=== PATIENT | female | born 1985 | race Caucasian/White ===

== ENCOUNTER 2018-06-09 10:54 | Outpatient (REF) | payer MEDICAID, SELFPAY ==
--- NOTE | 2018-06-09 09:40 | SKI_PTH ---
PATIENT: Henna Chase LOC: [facility] U#:[id number] AGE/SX: 32/F ROOM: RE06/09/[address]: Teresita Steiner : 1985 BED: DIS: 06/09/2018 SPEC #: [id number] RECD: 06/09/18 12:56 STATUS: JULITA REJoe #: [id number] JULIANA: 06/09/18 09:[address]: Teresita Steiner DEPT: Surgical Specimen RECD BY: Helga Busch ENTERED: 06/09/18 12:57 SP TYPE: ISABEL PITTS DR: Armando Madrid Tissues: 1 - SKIN BIOPSY(SHAVE/PUNCH) Procedures: SKIN LEVEL 4 Comments: [id number] (A PORTION OF PUNCH BX WAS LOST IN PROCESSING)
== END 2018-06-09 11:14 ==
LOC: LBN 10:54
PROVIDERS: PCP Family Medicine; Visit Provider Obstetrics & Gynecology Gynecology
DX: D22.62 Melanocytic nevi of left upper limb, including shoulder (principal)
CPT/HCPCS: 88305

== ENCOUNTER 2020-06-05 15:48 | Outpatient (REF) | payer MEDICAID, SELFPAY ==
--- NOTE | 2020-06-05 15:15 | PAPFT_PTH ---
PATIENT: Henna Chase LOC: [facility] U#:[id number] AGE/SX: 34/F ROOM: RE06/05/[address]: BOB Saul : 1985 BED: DIS: 06/05/2020 SPEC #: [id number] RECD: 06/05/20 18:19 STATUS: JULITA REJoe #: [id number] JULIANA: 06/05/20 15:[address]: Laura Garcia DEPT: [facility] Cytology RECD BY: Helga Busch ENTERED: 06/05/20 18:20 SP TYPE: PAPFT OTHR DR: Armando Madrid Tissues: 1 - CX/ENDOCX FOR PAP SMEARS Procedures: PAP THIN PREP/[facility] Screening HPV DNA PROBE Comments: [id number]
== END 2020-06-05 16:08 ==
LOC: LBN 15:48
PROVIDERS: PCP Family Medicine; Visit Provider Nurse Practitioner Family
DX: Z12.4 Encounter for screening for malignant neoplasm of cervix (principal); Z11.51 Encounter for screening for human papillomavirus (HPV)
CPT/HCPCS: 88142; 87624

== ENCOUNTER 2021-04-08 16:19 | Outpatient (REF) | payer MEDICAID, SELFPAY ==
[2021-04-08 20:21] LABS: Anion Gap 13.3 mmol/L (3-11); BUN 10 mg/dL (7-18); CO2 24.7 mmol/L (21.0-32.0); CREATININE 0.7 mg/dL (0.55-1.02); Calcium 9.4 mg/dL (8.5-10.1); Chloride 101 mmol/L (98-107); Glucose 93 mg/dL (74-106); Potassium 3.5 mmol/L (3.5-5.1); Sodium 139 mmol/L (136-145)
== END 2021-04-08 16:20 | disposition home or self-care (01) ==
LOC: LBN 16:19
PROVIDERS: PCP Family Medicine; Visit Provider Physician Assistant Medical
DX: R11.10 Vomiting, unspecified (principal)
CPT/HCPCS: 80048

== ENCOUNTER 2021-04-08 17:06 | Outpatient (REF) | payer MEDICAID, SELFPAY ==
[2021-04-11 14:19] LABS: COVID-19 RT-PCR UVMMC Result Negative (Negative)
== END 2021-04-08 17:07 | disposition home or self-care (01) ==
LOC: LBN 17:06
PROVIDERS: PCP Family Medicine; Visit Provider Physician Assistant Medical
DX: Z11.52 Encounter for screening for COVID-19 (principal)
CPT/HCPCS: U0003

== ENCOUNTER 2022-03-08 14:22 | Outpatient (REF) | payer OTHER, SELFPAY ==
[2022-03-09 14:23] LABS: Chlamydia Result Negative (Negative); GC Result Negative (Negative)
== END 2022-03-08 14:23 | disposition home or self-care (01) ==
LOC: LBN 14:22
PROVIDERS: PCP Nurse Practitioner Adult Health; Visit Provider Nurse Practitioner Women's Health
DX: Z11.3 Encounter for screening for infections with a predominantly sexual mode of transmission (principal)
CPT/HCPCS: 87491; 87591

== ENCOUNTER 2022-09-03 02:02 | Outpatient (CLI) | payer OTHER, SELFPAY ==
[2022-09-03 10:33] LABS: Anion Gap 8.7 mmol/L (3-11); BUN 11 mg/dL (7-18); CO2 24.3 mmol/L (21.0-32.0); CREATININE 0.8 mg/dL (0.55-1.02); Calculated LDL 115 mg/dL (<100); Chloride 106 mmol/L (98-107); Cholesterol 205 mg/dL (<200); Estimated GFR 97.26 (mL/min/1.73m2); Glucose 88 mg/dL (74-106); HDL Cholesterol 71 mg/dL (40-60); Potassium 3.9 mmol/L (3.5-5.1); Sodium 139 mmol/L (136-145); Triglyceride 96 mg/dL (<150)
== END 2022-09-03 02:03 | disposition home or self-care (01) ==
PROVIDERS: PCP Nurse Practitioner Adult Health; Visit Provider Nurse Practitioner Adult Health
DX: E28.2 Polycystic ovarian syndrome (principal); Z51.81 Encounter for therapeutic drug level monitoring
CPT/HCPCS: 36415; 80048; 80061

== ENCOUNTER 2022-10-01 03:00 | Outpatient (CLI) | payer OTHER, SELFPAY ==
[2022-10-01 09:33] LABS: TSH (W/Ref FT4) 0.97 uIU/mL (0.36-3.74)
== END 2022-10-01 03:01 | disposition home or self-care (01) ==
PROVIDERS: PCP Nurse Practitioner Adult Health; Visit Provider Nurse Practitioner Adult Health
DX: E28.2 Polycystic ovarian syndrome (principal); E66.9 Obesity, unspecified; Z79.899 Other long term (current) drug therapy
CPT/HCPCS: 36415; 84443

== ENCOUNTER 2023-03-18 13:33 | Outpatient (REF) | payer OTHER, SELFPAY ==
[2023-03-19 15:55] LABS: Chlamydia Result Negative (Negative); GC Result Negative (Negative)
== END 2023-03-18 13:34 | disposition home or self-care (01) ==
LOC: LBN 13:33
PROVIDERS: PCP Nurse Practitioner Adult Health; Visit Provider Advanced Practice Midwife
DX: Z11.3 Encounter for screening for infections with a predominantly sexual mode of transmission (principal); Z72.51 High risk heterosexual behavior
CPT/HCPCS: 87491; 87591

== ENCOUNTER 2023-03-18 13:50 | Outpatient (CLI) | payer OTHER, SELFPAY ==
[2023-03-21 09:17] LABS: HSV Type 1 Ab, IgG Negative (Negative); HSV Type 2 Ab, IgG Negative (Negative)
[2023-03-21 11:02] LABS: Hepatitis B Surface Ag Negative (Negative)
[2023-03-21 11:05] LABS: Hepatitis C Ab w Rflx HCV PCR Negative (Negative)
[2023-03-21 11:44] LABS: HIV-1/2 Ag & Ab Screen Negative (Negative)
[2023-03-21 14:16] LABS: Syphilis IgG w/Reflex Nonreactive (Nonreactive)
== END 2023-03-18 13:51 | disposition home or self-care (01) ==
LOC: LBO 13:50
PROVIDERS: PCP Nurse Practitioner Adult Health; Visit Provider Advanced Practice Midwife
DX: Z34.91 Encounter for supervision of normal pregnancy, unspecified, first trimester (principal); Z72.51 High risk heterosexual behavior
CPT/HCPCS: 36415; 86803; 87340; 87389; 86695; 86696; 86780

== ENCOUNTER 2023-06-07 14:20 | Outpatient (REF) | payer OTHER, SELFPAY | END 2023-06-07 14:21 | disposition home or self-care (01) | LOC: LBN 14:20 | PROVIDERS: PCP Nurse Practitioner Adult Health; Visit Provider Nurse Practitioner Family | DX: J02.9 Acute pharyngitis, unspecified (principal) | CPT/HCPCS: 87070 ==

== ENCOUNTER 2023-06-10 09:05 | Outpatient (REF) | payer OTHER, SELFPAY ==
[2023-06-10 16:06] LABS: ALT 273 U/L (14-59); AST 104 U/L (15-37); Albumin 3.7 g/dL (3.4-5.0); Alkaline Phosphatase 212 U/L (46-116); Anion Gap 11.6 mmol/L (3-11); BUN 10 mg/dL (7-18); Bilirubin, Total 0.7 mg/dL (0.2-1.0); CO2 23.4 mmol/L (21.0-32.0); CREATININE 0.8 mg/dL (0.55-1.02); Calcium 9.2 mg/dL (8.5-10.1); Chloride 104 mmol/L (98-107); Estimated GFR 97.26 (mL/min/1.73m2); Glucose 93 mg/dL (74-106); Potassium 3.9 mmol/L (3.5-5.1); Sodium 139 mmol/L (136-145); Total Protein 8.1 g/dL (6.4-8.2)
[2023-06-10 16:36] LABS: Bilirubin, Direct 0.4 mg/dL (0.0-0.2)
[2023-06-10 20:24] LABS: Lab Add On Test DONE
[2023-06-10 20:31] LABS: Lipase 26 U/L (16-77)
== END 2023-06-10 09:06 | disposition home or self-care (01) ==
LOC: LBN 09:05
PROVIDERS: PCP Nurse Practitioner Adult Health; Visit Provider Student in an Organized Health Care Education/Training Program
DX: B27.90 Infectious mononucleosis, unspecified without complication (principal); R16.1 Splenomegaly, not elsewhere classified; R74.8 Abnormal levels of other serum enzymes
CPT/HCPCS: 80048; 80076; 83690

== ENCOUNTER 2023-06-24 14:29 | Outpatient (REF) | payer OTHER, SELFPAY ==
[2023-06-27 12:57] LABS: Chlamydia Result Negative (Negative); GC Result Negative (Negative)
== END 2023-06-24 14:30 | disposition home or self-care (01) ==
LOC: LBN 14:29
PROVIDERS: PCP Nurse Practitioner Adult Health; Visit Provider Obstetrics & Gynecology
DX: Z11.3 Encounter for screening for infections with a predominantly sexual mode of transmission (principal)
CPT/HCPCS: 87491; 87591

== ENCOUNTER 2023-07-22 01:25 | Outpatient (CLI) | payer OTHER, SELFPAY ==
[2023-07-22 10:01] LABS: ALT 32 U/L (14-59); AST 19 U/L (15-37); Albumin 3.8 g/dL (3.4-5.0); Alkaline Phosphatase 77 U/L (46-116); Bilirubin, Direct 0.2 mg/dL (0.0-0.2); Bilirubin, Total 0.5 mg/dL (0.2-1.0); Total Protein 7.7 g/dL (6.4-8.2)
== END 2023-07-22 01:26 | disposition home or self-care (01) ==
LOC: LBO 01:25
PROVIDERS: PCP Nurse Practitioner Adult Health; Referring Provider Student in an Organized Health Care Education/Training Program; Visit Provider Student in an Organized Health Care Education/Training Program
DX: B27.90 Infectious mononucleosis, unspecified without complication (principal); R74.8 Abnormal levels of other serum enzymes
CPT/HCPCS: 36415; 80076

== ENCOUNTER 2023-11-11 01:32 | Outpatient (CLI) | payer OTHER, SELFPAY ==
[2023-11-11 09:03] LABS: Anion Gap 8.6 mmol/L (3-11); BUN 10 mg/dL (7-18); CO2 27.4 mmol/L (21.0-32.0); CREATININE 0.8 mg/dL (0.55-1.02); Calcium 9.1 mg/dL (8.5-10.1); Calculated LDL 104 mg/dL (<100); Chloride 106 mmol/L (98-107); Cholesterol 178 mg/dL (<200); Estimated GFR 96.66 (mL/min/1.73m2); Glucose 75 mg/dL (74-106); HDL Cholesterol 64 mg/dL (40-60); Potassium 3.9 mmol/L (3.5-5.1); Sodium 142 mmol/L (136-145); Triglyceride 52 mg/dL (<150)
== END 2023-11-11 01:33 | disposition home or self-care (01) ==
LOC: LBO 01:33
PROVIDERS: Absent Provider Nurse Practitioner Adult Health; PCP Nurse Practitioner Adult Health; Visit Provider Nurse Practitioner Adult Health
DX: E66.01 Morbid (severe) obesity due to excess calories (principal); Z68.41 Body mass index [BMI] 40.0-44.9, adult
CPT/HCPCS: 36415; 80048; 80061

== ENCOUNTER 2024-05-18 11:50 | Outpatient (REF) | payer OTHER, SELFPAY ==
--- NOTE | 2024-05-18 11:10 | PAPFT_PTH ---
PATIENT: Henna Chase LOC: [facility] U#:[id number] AGE/SX: 38/F ROOM: RE05/18/[address]: Teresita Steiner : 1985 BED: DIS: 05/18/2024 SPEC #: [id number] RECD: 05/18/24 13:13 STATUS: JULITA REJoe #: [id number] JULIANA: 05/18/24 11:[address]: Teresita Steiner DEPT: [facility] Cytology RECD BY: Helga Busch ENTERED: 05/18/24 13:14 SP TYPE: PAPFT GISSELLE DR: Kera Parker APRN Tissues: 1 - CX/ENDOCX FOR PAP SMEARS Procedures: PAP THIN PREP/[facility] Screening HPV DNA PROBE Comments: [id number] (HPV 16 & 18/45)
[2024-05-21 12:49] LABS: Chlamydia Result Negative (Negative); GC Result Negative (Negative)
== END 2024-05-18 11:51 | disposition home or self-care (01) ==
LOC: LBN 11:50
PROVIDERS: PCP Nurse Practitioner Adult Health; Visit Provider Obstetrics & Gynecology Gynecology
DX: Z11.3 Encounter for screening for infections with a predominantly sexual mode of transmission (principal); Z97.5 Presence of (intrauterine) contraceptive device; Z01.419 Encounter for gynecological examination (general) (routine) without abnormal findings
CPT/HCPCS: 87491; 87591; 88142; 87624

== ENCOUNTER 2025-01-04 00:24 | Outpatient (CLI) | payer OTHER, SELFPAY ==
[2025-01-04 09:29] LABS: Anion Gap 6.7 mmol/L (3-11); BUN 9 mg/dL (7-18); CO2 29.3 mmol/L (21.0-32.0); Calcium 9.2 mg/dL (8.5-10.1); Calculated LDL 101 mg/dL (<100); Chloride 104 mmol/L (98-107); Cholesterol 198 mg/dL (<200); Estimated GFR 112.75 (mL/min/1.73m2); Glucose 75 mg/dL (74-106); HDL Cholesterol 73 mg/dL (>or=50); Potassium 4.0 mmol/L (3.5-5.1); Sodium 140 mmol/L (136-145); Triglyceride 122 mg/dL (<150)
== END 2025-01-04 00:25 | disposition home or self-care (01) ==
LOC: LBO 00:24
PROVIDERS: PCP Nurse Practitioner Adult Health; Referring Provider Nurse Practitioner Adult Health; Visit Provider Nurse Practitioner Adult Health
DX: E66.01 Morbid (severe) obesity due to excess calories (principal); Z68.41 Body mass index [BMI] 40.0-44.9, adult; Z13.220 Encounter for screening for lipoid disorders; Z13.1 Encounter for screening for diabetes mellitus
CPT/HCPCS: 36415; 80048; 80061